=== PATIENT | male | born 1955 | race Caucasian/White ===

== ENCOUNTER → 2016-12-10 | Outpatient (CLI) | payer BC | END | disposition home or self-care (01) | LOC: PCVCIMAG 11:36 | PROVIDERS: ATTEND Internal Medicine | DX: I42.8 Other cardiomyopathies (principal); I10 Essential (primary) hypertension; E78.00 Pure hypercholesterolemia, unspecified | CPT/HCPCS: 93325; 93351 ==

== ENCOUNTER → 2017-12-11 | Outpatient (CLI) | payer BC | END | disposition home or self-care (01) | LOC: PCVCIMAG 12:54 | DX: I42.9 Cardiomyopathy, unspecified (principal); I10 Essential (primary) hypertension | CPT/HCPCS: 93325; 93351 ==

== ENCOUNTER → 2018-12-15 | Outpatient (CLI) | payer BC ==
--- NOTE | 2018-12-15 16:38 | PCVCIMAG ---
APPROVED REPORT Study performed: 12/15/2018 15:22:57 Exam: Stress Echocardiogram Indication: Hyperlipidemia, Hypertension Stress Nurse: Ann-Marie Ortega RN Status: routine Ht: 6 ft 0 in BP: 122/80 mmHg Rhythm: NSR Medical History Medical History: cardiomyopathy Procedure The patient underwent an Exercise Stress Test using the Rashaad Protocol. Blood pressure, heart rate, and EKG were monitored. An Echocardiogram was performed by radar technician in four stages in quad fashion. At peak stress, four selected images were obtained and placed side by side with resting images for comparison. Stress Test Details Stress Test: Exercise stress testing was performed using a Rashaad protocol. HR Resting HR: 82 bpmMax Heart Rate (APMHR): 159 bpm Max HR Achieved: 153 bpmTarget HR (85% APMHR): 135 bpm % of APMHR: 96 Recovery HR: 99 bpm HR response to stress: Normal HR response to stress BP Resting BP: 120/80 mmHg Max BP: 164/80 mmHg Recovery BP: 130/70 mmHg BP response to stress: Normal blood pressure response to stress. ECG Resting ECG: Sinus Rhythm, nonspecific ST-T abnormalities Stress ECG: Sinus Rhythm, nonspecific ST-T abnormalities ST Change: Normal Maximum ST Deviation: 0 mm Arrhythmia: None Recovery ECG: Sinus Rhythm, nonspecific ST-T abnormalities Recovery ST Change: Normal Recovery ST Deviation: 0 mm Recovery Arrhythmia: VPC Clinical Reason for Termination: Maximal effort Exercise duration: 9 min 29 sec Highest Stage Achieved: Stage 4: 4.2 mph at 16% grade. Exercise capacity: 11.60 METs Angina Score: None Stress ECG Conclusion Brown Treadmill Score is 9.0 which is Low risk. Pre-Stress Echo The resting Echocardiogram showed abnormal left ventricular contractility with an estimated Ejection Fraction of about 35-40%. The resting Echocardiogram demonstrated wall motion abnormality in the global hypokinesis . Post-Stress Echo The stress Echocardiogram showed normal left ventricular contractility with an estimated Ejection Fraction of about 50-55%. Clinical Normal augmentation of myocardial wall segments using a 17 segment model. Conclusion Clinical Response: Non-ischemic Exercise Capacity: Average Stress ECG Response: Non-ischemic Stress Echo Images: Non-ischemic The left ventricle is normal in size and wall thickness in both the rest and stress images. Other Information Study Quality: Adequate <Conclusion> The left ventricle is normal in size and wall thickness in both the rest and stress images.
== END | disposition home or self-care (01) ==
LOC: PCVCIMAG 14:39
PROVIDERS: ATTEND Internal Medicine
DX: E78.5 Hyperlipidemia, unspecified (principal); I10 Essential (primary) hypertension
CPT/HCPCS: 93325; 93351

== ENCOUNTER → 2019-06-29 | Outpatient (CLI) | payer BC ==
--- NOTE | 2019-06-29 11:04 | PCVCIMAG ---
APPROVED REPORT Study performed: 06/29/2019 09:50:39 EXAM: Comprehensive 2D, Doppler, and color-flow Echocardiogram Patient Location: Echo lab Status: routine BSA: 2.29 HR: 71 bpmBP: 124/80 mmHg Rhythm: NSR Other Information Study Quality: Adequate Risk Factors: Cardiac Risk Factors: HTN, Hyperlipidemia Indications Cardiomyopathy 2D Dimensions IVSd: 11.05 (7-11mm) LVDd: 54.06 mm PWd: 11.06 (7-11mm)Ascending Ao: 37.80 (22-36mm) LVDs: 44.55 (25-40mm) Left Atrium: 42.49 (27-40mm) Aortic Root: 35.83 mm LV Single Plane 4CH: 37.66 % LV Single Plane 2CH: 39.02 % Biplane EF: 37.3 % Volumes Left Atrial Volume (Systole) Single Plane 4CH: 88.93 mLSingle Plane 2CH: 78.83 mL LA ESV Index: 39.00 mL/m2 Aortic Valve AoV Peak Hector.: 1.40 m/s AO Peak Gr.: 7.85 mmHgLVOT Max P.96 mmHg LVOT Max V: 0.86 m/s Mitral Valve E/A Ratio: 0.9 MV Decel. Time: 227.70 ms MV E Max Hector.: 0.68 m/s MV A Hector.: 0.77 m/s IVRT: 141.87 ms Pulmonary Valve PV Peak Hector.: 0.96 m/sPV Peak Gr.: 3.69 mmHg Pulmonary Vein P Vein S: 0.29 m/sP Vein A: 0.26 m/s P Vein D: 0.35 m/sP Vein A Dur.: 152.2 msec P Vein S/D Ratio: 0.83 Tricuspid Valve TR Peak Hector.: 2.42 m/s TR Peak Gr.: 23.35 mmHg Left Ventricle Left ventricle is borderline dilated. There is global hypokinesis of the left ventricle. There is normal left ventricular wall thickness. Left ventricular systolic function is mild-moderately decreased. LVEF is 40%. Mild diastolic dysfunction is present (impaired relaxation pattern). Right Ventricle The right ventricle is normal size. The right ventricular systolic function is normal. Atria Left atrium is mildly dilated. The right atrium size is normal. Aortic Valve The aortic valve is normal in structure. Mild aortic regurgitation. There is no aortic valvular stenosis. Mitral Valve The mitral valve is normal in structure. Trace mitral regurgitation. No evidence of mitral valve stenosis. Tricuspid Valve The tricuspid valve is normal in structure. Mild tricuspid regurgitation with PAP of 30 mmHg. Pulmonic Valve The pulmonary valve is normal in structure. Mild pulmonic regurgitation. Great Vessels The aortic root is normal in size. The ascending aorta is borderline dilated to 3.8 cm. IVC is normal in size and collapses >50% with inspiration. Pericardium There is no pericardial effusion. <Conclusion> Left ventricular systolic function is mild-moderately decreased. There is global hypokinesis of the left ventricle. LVEF is 40%. Mild diastolic dysfunction Structurally normal aortic valve. Mild aortic regurgitation, no stenosis. The mitral valve is normal in structure. Trace mitral regurgitation. Mild tricuspid regurgitation with pulmonary artery pressure of 30 mmHg. There is no pericardial effusion.
== END | disposition home or self-care (01) ==
LOC: PCVCIMAG 09:52
PROVIDERS: ATTEND Internal Medicine
DX: I08.2 Rheumatic disorders of both aortic and tricuspid valves (principal); I42.8 Other cardiomyopathies; I10 Essential (primary) hypertension; E78.5 Hyperlipidemia, unspecified; Z79.899 Other long term (current) drug therapy
CPT/HCPCS: 93306